=== PATIENT | male | born 1995 | race Caucasian/White ===

== ENCOUNTER 2016-07-11 19:22 | Emergency (ER) | payer BC ==
[2016-07-11 20:14] VITALS: BP 109/79
[2016-07-11] MEDS ORDERED: Lidocaine 2% W/EPI 1:100,000* 20 ML MDV ONE (20:31)
[2016-07-11] MEDS ORDERED: Acetaminophen TAB* 325 MG PO ONE (21:05)
[2016-07-11] MEDS ORDERED: DOXYcycline CAP(*) 100 MG PO ONE (21:05)
--- NOTE | 2016-07-11 22:02 | UC ---
Skin Complaint HPI - HPI Summary HPI Summary: pt presents with c/o of swelling and tenderness in left upper buttock. Pt noticed that tenderness and swelling began 3 days ago and now has worsened. Pt states that area is tender and draining purulent drainage. - History of Current Complaint Chief Complaint: UCSkin Time Seen by Provider: 07/11/16 20:23 Stated Complaint: SKIN COMPLAINT Hx Obtained From: Patient Onset/Duration: Gradual Onset, Lasting Days - 3 Skin Exposure Onset/Duration: Days Ago Timing: Constant Onset Severity: Mild Current Severity: Moderate Pain Intensity: 5 Pain Scale Used: 0-10 Numeric Location: Other - left upper buttock Character: Pain, Redness, Raised Aggravating: Touch Alleviating: Nothing Associated Signs & Symptoms: Positive: Drainage, Tenderness - Allergy/Home Medications Allergies/Adverse Reactions: Allergies Allergy/AdvReac Type Severity Reaction Status Date / Time Sulfa Antibiotics Allergy Rash Verified 07/11/16 20:17 Home Medications: Home Medications Insulin Aspart [Novolog] 100 unit SC SEE INSTRUCTIONS 07/11/16 [History Confirmed 07/11/16] Pseudoephedrine-Ibuprofen [Advil Cold & Sinus 30-200 mg] 2 cap PO BID PRN [History Confirmed 07/11/16] Review of Systems Constitutional: Negative Skin: Other - tenderness, swelling and drainage Eyes: Negative ENT: Negative Respiratory: Negative Cardiovascular: Negative Gastrointestinal: Negative Genitourinary: Negative Motor: Negative Neurovascular: Negative Musculoskeletal: Negative Neurological: Negative Psychological: Negative All Other Systems Reviewed And Are Negative: Yes PMH/Surg Hx/FS Hx/Imm Hx Previously Healthy: Yes Endocrine History Of: Reports: Diabetes, Thyroid Disease - HYPER - Surgical History Surgical History: Yes Surgery Procedure, Year, and Place: RIGHT EAR DRUM - Family History Known Family History: Positive: Other - positive for URI - Social History Occupation: Student - [employer] Alcohol Use: Weekly Substance Use Type: None Smoking Status (MU): Never Smoked Tobacco Physical Exam Triage Information Reviewed: Yes Appearance: Other: - anxious, pt stated that he is nervous Vital Signs: Initial Vital Signs Temp 99.2 F 07/11/16 20:08 Pulse 108 07/11/16 20:08 Resp 16 07/11/16 20:08 BP 109/79 07/11/16 20:08 Pulse Ox 100 07/11/16 20:08 Vital Signs Reviewed: Yes ENT Exam: Normal Respiratory Exam: Normal Cardiovascular Exam: Normal Abdominal Exam: Normal Abdomen Description: Positive: Other: - pilonidal cyst draing purulent drainage left upper buttock Musculoskeletal Exam: Normal Neurological Exam: Normal Psychological Exam: Normal Psychological: Positive: Other: - anxious Skin Exam: Other - pilonidal cyst drainaing lft upper buttock Course/Dx - Differential Diagnoses - Skin Complaint Differential Diagnoses: Abscess, MRSA - Diagnoses Provider Diagnoses: pilonidal cyst, left upper buttock, Procedures - Incision and Drainage Site: left upper buttock, pilonidal cyst Anesthesia: Local Instrument(s): Scalpel Packing: Other - pressure irrigation with NS and hibicleanse Discharge - Discharge Plan Condition: Stable Disposition: HOME Prescriptions: DOXYcycline CAP(*) [DOXYcycline 100MG CAP(*)] 100 mg PO BID #14 cap Patient Education Materials: Pilonidal Cyst (GEN) Forms: *School Release Referrals: Myesha Hayward MD [Medical Doctor] - Additional Instructions: Please follow up with your pCP or return to clinic in 2 days for wound check.
== END 2016-07-11 21:21 | disposition home or self-care (01) ==
LOC: UCCORT 19:22
DX: L05.91 Pilonidal cyst without abscess (principal); Z88.2 Allergy status to sulfonamides; E11.9 Type 2 diabetes mellitus without complications; Z79.4 Long term (current) use of insulin
CPT/HCPCS: 10080; 87070; 87077; 87186; 87205; 87640; 87641; 99202; A9270-GY; G0463

== ENCOUNTER 2017-07-27 15:43 | Emergency (ER) | payer BC ==
[2017-07-27 16:09] VITALS: BP 142/68
--- NOTE | 2017-07-27 16:11 | UC ---
Skin Complaint HPI - HPI Summary HPI Summary: Pt presents wtih wound to left upper inner thigh progressive in size and discomfort x 4 days. + TTP. Pt has taken APAP with improve - last dose approx 6m onth ago. Pt with h/o similar - no known dx of MRSA. Pt is a diabetic, insulin requiring. Tdap UTD. Pt states FSBG have been "good" Pt has not tried to express from wound. no other complaints Pt's medications reviewed this visit - History of Current Complaint Chief Complaint: UCSkin Time Seen by Provider: 07/27/17 16:11 Stated Complaint: SKIN COMP ON LFT LEG Hx Obtained From: Patient Onset/Duration: Lasting Days Timing: Constant Onset Severity: Mild Current Severity: Moderate Pain Intensity: 5 Pain Scale Used: 0-10 Numeric Location: Other - left upper inner thigh Aggravating Factor(s): Touch Alleviating Factor(s): OTC Meds Associated Signs & Symptoms: Positive: Negative. Negative: Fever, Chills, Cough - Allergy/Home Medications Allergies/Adverse Reactions: Allergies Allergy/AdvReac Type Severity Reaction Status Date / Time Sulfa (Sulfonamide Allergy Intermediate Rash Verified 07/27/17 16:11 Antibiotics) Home Medications: Home Medications Levothyroxine TAB* [Synthroid TAB*] 75 mcg PO 0800 07/27/17 [History Confirmed 07/27/17] Review of Systems Constitutional: Negative Skin: Rash - left upper inner leg Is Patient Immunocompromised?: Yes - IDDM All Other Systems Reviewed And Are Negative: Yes PMH/Surg Hx/FS Hx/Imm Hx Previously Healthy: Yes Endocrine History: Diabetes, Thyroid Disease Neurological History: Other Other Neurological History: pilonidal cyst - Surgical History Surgical History: Yes Surgery Procedure, Year, and Place: RIGHT EAR DRUM - Family History Known Family History: Positive: Other - positive for URI - Social History Occupation: Student Lives: Dormitory/Roommates Alcohol Use: Weekly Substance Use Type: None Smoking Status (MU): Never Smoked Tobacco Physical Exam Triage Information Reviewed: Yes Appearance: Well-Appearing, No Pain Distress, Well-Nourished Vital Signs: Initial Vital Signs Temp 98.4 F 07/27/17 16:07 Pulse 98 07/27/17 16:07 Resp 16 07/27/17 16:07 BP 142/68 07/27/17 16:07 Pulse Ox 98 07/27/17 16:07 Eyes: Positive: Conjunctiva Clear ENT: Positive: Hearing grossly normal Neck: Positive: Supple Respiratory: Positive: No respiratory distress, No accessory muscle use Cardiovascular Exam: Normal Cardiovascular: Positive: RRR, No Murmur Musculoskeletal Exam: Normal Musculoskeletal: Positive: Strength Intact Neurological Exam: Normal Neurological: Positive: Alert Psychological Exam: Normal Skin: Positive: Other - left upper, inner thigh pt with infected hair follicle with apparent abscess development - 2cm diameter fluctuant, tender, erythema, warmth Course/Dx - Course Course Of Treatment: pt with abscess left upper, inner thigh. I+D. culture taken. demarcated. pt is IDDM. Rx doxy. return precautions. wound care discussed. pt declined offer to discuss with pt - Diagnoses Provider Diagnoses: abscess I+D Procedures - Procedure Summary Procedure Summary: verbal instructions for abscess I+D time out completed at bedside with processing associate infliltrated with 1% lidocaine 2ml using 11 blade opened stab incision copious serious fluid followed by end purulent drainage no odor culture taken irrigated with 150ml sterile saline no locutions pt tolerated well covered with abx ointment and bandage demarcated erythema d/w pt wound care return precautions - Incision and Drainage Site: left medial, anterior prox thight Anesthesia: Local Instrument(s): Scalpel Discharge - Sign-Out/Discharge Documenting (check all that apply): Discharge - Discharge Plan Condition: Stable Disposition: HOME Prescriptions: DOXYcycline CAP(*) [DOXYcycline 100MG CAP(*)] 100 mg PO BID #20 cap Patient Education Materials: Abscess (ED) [facility] [Outside] - If Needed Non Staff,Doctor [Primary Care Provider] - Additional Instructions: - Apply warm water soaks (sloppy wet) 3 times a day for 5 days to your wound. After soaking, pat dry. Cover with antibiotic ointment and a bandage - Okay to alternate ibuprofen (advil, motrin)600mg and tylenol 1000mg every 3 hours for pain. Take with food. Do NOT take for more than 4-5 days. The numbing medication will wear off in approximately 90 minutes - Take anitbiotics as prescribed until gone - a culture from your wound has been sent to the lab. if you need a different antibiotic you will receive a call from a care team provider - Monitor your wound for increased redness - if redness spreads beyond the robinson drawn after 24 hours, red streaking, odor, fevers or you have ANY other concerns it is recommended you return here, go to campus clinic or the emergency department for evaluation. you may return here with ANY questions or concerns - Billing Disposition and Condition Condition: STABLE Disposition: HOME
[2017-07-27] MEDS ORDERED: Lidocaine 1%* 5 ML VIAL INJ ONE (16:14)
[2017-07-27] MEDS ORDERED: Ibuprofen TAB* 600 MG PO ONE (16:36)
== END 2017-07-27 16:49 | disposition home or self-care (01) ==
LOC: UCCORT 15:43
DX: L02.416 Cutaneous abscess of left lower limb (principal); E11.9 Type 2 diabetes mellitus without complications; Z79.4 Long term (current) use of insulin; Z88.2 Allergy status to sulfonamides
CPT/HCPCS: 87070; 87077; 87186; 87205; 87640; 87641; 99212; A9270-GY; G0463